=== PATIENT | female | born 1945 | race Hispanic/Latino ===

== ENCOUNTER 2016-04-10 16:25 | Inpatient (IN) | payer MEDICARE ==
[2016-04-10 17:31] LABS: Urine Drugs of Abuse Note Disclamer
[2016-04-10] MEDS ORDERED: NACL 0.9% 1000 ML 2,000 ML ONE (17:54)
[2016-04-10 17:57] LABS: Bacteria,Urine 1+ /HPF (Negative); Bilirubin,Urine NEG (Negative); Blood,Urine SM (Negative); Ketones,Urine NEG (Negative); Leukocyte Esterase,Urine MOD (Negative); Mucus,Urine FEW /HPF; Nitrite,Urine NEG (Negative); Protein,Urine <15 mg/dL mg/dL (Negative); Urobilinogen,Urine < 2.0 mg/dL (<2.0)
--- NOTE | 2016-04-10 18:19 | Emergency Department Report ---
ED General Adult HPI - General Chief complaint: Altered Mental Status Stated complaint: AMS Time Seen by Provider: 04/10/16 17:51 Source: family, EMS (ems notes not available at time of chart dictation), RN notes reviewed, old records reviewed Mode of arrival: Stretcher Limitations: Altered Mental Status, Physical Limitation - History of Present Illness Initial comments: This is a 70-year-old female. She is previously unknown to me. Has a past medical history of dementia, hypertension, depression, COPD. Her primary care doctor is Dr. Jh Sow. Patient has had multiple hospital admissions for generalized weakness, urinary tract infection. Of note, patient recently had 2 urine cultures last year, which grew out the same organism. However, her most recent urine culture from January was negative. Patient is brought to the hospital by her partner and EMS for generalized weakness. History is obtained primarily by speaking to the patient's partner/ , Mrs. Oly Siddiqui. The patient is having complete weakness, not eating anything not drinking anything. She is having some diarrhea. Symptoms have been constant since yesterday, and they have no exacerbating or relieving factors. As per discussion with the patient's /significant other, the patient goals of care and advanced directives are for comfort care only, and they requested DO NOT RESUSCITATE, DO NOT INTUBATE. The patient was too delirious to sign, the patient's /sniffing a #15 R, DO NOT INTUBATE paperwork. The risks, benefits, alternatives of central line will also discuss with the patient's , and she declined this as well. She is interested in comfort care and palliative care only. She is okay with IV fluids, pain medication, antibiotics. During my evaluation, the patient was quite hypotensive, with a blood pressure in the 70s. A large bore 18-gauge IV was placed by myself with no difficulty. 2 L of IV fluids were ordered, urinalysis suggested urinary tract infection, she was placed in isolation precautions for resumed infectious diarrhea, although ischemic colitis is also a possibility. Patient will be admitted for IV fluids, pain control, palliative care consult. -: Gradual Consistency: constant Improves with: none Worsens with: none Associated Symptoms: loss of appetite, malaise, weakness - Related Data Home Medications Medication Instructions Recorded Confirmed Last Taken ALPRAZolam [Xanax TAB] 1 mg PO TID PRN 04/10/16 04/10/16 Unknown Baclofen [Lioresal] 0 mg PO BID 04/10/16 04/10/16 Unknown Colesevelam [Welchol] 625 mg PO BID 04/10/16 04/10/16 Unknown Dicyclomine [Bentyl] 20 mg PO BID 04/10/16 04/10/16 Unknown HYDROcodone/APAP 7.5-325 [[place] 1 each PO TID PRN 04/10/16 04/10/16 Unknown 7.5/325] Omeprazole 40 mg PO DAILY 04/10/16 04/10/16 Unknown Pantoprazole [Protonix TAB] 20 mg QDAY 04/10/16 04/10/16 Unknown QUEtiapine [SEROquel] 100 mg PO QPM 04/10/16 04/10/16 Unknown Rivastigmine [Exelon] 4.6 mg TD DAILY 04/10/16 04/10/16 Unknown Zolpidem Tartrate [Edluar SUBL] 10 mg SL QHS PRN 04/10/16 04/10/16 Unknown Allergies Allergy/AdvReac Type Severity Reaction Status Date / Time No Known Allergies Allergy Verified 12/18/15 15:46 ED Review of Systems ROS: Stated complaint: AMS Other details as noted in HPI Constitutional: malaise, weakness Eyes: as per HPI ENT: as per HPI Respiratory: see HPI. denies: cough Cardiovascular: as per HPI Gastrointestinal: diarrhea Genitourinary: as per HPI Musculoskeletal: as per HPI Skin: as per HPI Neurological: weakness Psychiatric: as per HPI ED Past Medical Hx - Past Medical History Hx Hypertension: Yes Hx Arthritis: Yes Hx Psychiatric Treatment: Yes (depression) Hx COPD: Yes Hx Dementia: Yes Hx HIV: No Additional medical history: Pancreatitis. Chronic pain. colitis. osteoporosis - Surgical History Hx Coronary Stent: No Hx Pacemaker: No Hx Internal Defibrillator: No Additional Surgical History: knee surg hysterectomy pancreatic surgery bowel surgery toe surgery - Social History Smoking Status: Never Smoker - Medications Home Medications: Home Medications Medication Instructions Recorded Confirmed Last Taken Type ALPRAZolam [Xanax TAB] 1 mg PO TID PRN 04/10/16 04/10/16 Unknown History Baclofen [Lioresal] 0 mg PO BID 04/10/16 04/10/16 Unknown History Colesevelam [Welchol] 625 mg PO BID 04/10/16 04/10/16 Unknown History Dicyclomine [Bentyl] 20 mg PO BID 04/10/16 04/10/16 Unknown History HYDROcodone/APAP 7.5-325 [[place] 1 each PO TID PRN 04/10/16 04/10/16 Unknown History 7.5/325] Omeprazole 40 mg PO DAILY 04/10/16 04/10/16 Unknown History Pantoprazole [Protonix TAB] 20 mg QDAY 04/10/16 04/10/16 Unknown History QUEtiapine [SEROquel] 100 mg PO QPM 04/10/16 04/10/16 Unknown History Rivastigmine [Exelon] 4.6 mg TD DAILY 04/10/16 04/10/16 Unknown History Zolpidem Tartrate [Edluar SUBL] 10 mg SL QHS PRN 04/10/16 04/10/16 Unknown History ED Physical Exam - General Limitations: Altered Mental Status, Physical Limitation General appearance: lethargic - Head Head exam: Present: atraumatic, normocephalic - Eye Eye exam: Present: normal appearance - ENT ENT exam: Present: mucous membranes dry - Neck Neck exam: Present: normal inspection - Respiratory Respiratory exam: Present: decreased breath sounds. Absent: respiratory distress - Cardiovascular Cardiovascular Exam: Present: regular rate, normal rhythm, normal heart sounds. Absent: bradycardia, tachycardia, irregular rhythm, systolic murmur, diastolic murmur, rubs, gallop - GI/Abdominal GI/Abdominal exam: Present: soft. Absent: distended, tenderness, guarding, rebound, rigid - Extremities Exam Extremities exam: Present: normal inspection, normal capillary refill. Absent: pedal edema, joint swelling, calf tenderness - Back Exam Back exam: Present: normal inspection, full ROM. Absent: tenderness, CVA tenderness (R), CVA tenderness (L), muscle spasm, paraspinal tenderness, vertebral tenderness - Neurological Exam Neurological exam: Present: altered, other (patient groans in response to command. She does move extremities occasionally and response to command.) - Psychiatric Psychiatric exam: Present: normal affect, normal mood - Skin Skin exam: Present: warm, dry, intact, normal color. Absent: rash ED Course Vital Signs 04/10/16 04/10/16 04/10/16 17:20 18:48 19:11 Temperature 97.6 F Pulse Rate 74 100 H Respiratory 18 22 7 L Rate Blood Pressure 101/60 O2 Sat by Pulse 99 97 99 Oximetry 04/10/16 04/10/16 04/10/16 19:15 19:31 19:45 Temperature Pulse Rate 96 H 116 H 105 H Respiratory 8 L 12 9 L Rate Blood Pressure 67/36 110/63 108/57 O2 Sat by Pulse 100 100 100 Oximetry 04/10/16 04/10/16 04/10/16 20:00 20:15 20:30 Temperature Pulse Rate 110 H 108 H 108 H Respiratory 7 L 8 L 12 Rate Blood Pressure 95/61 86/57 86/57 O2 Sat by Pulse 99 100 98 Oximetry 04/10/16 04/10/16 04/10/16 20:45 21:01 22:01 Temperature Pulse Rate 107 H 124 H 99 H Respiratory 8 L 11 L 9 L Rate Blood Pressure 111/76 105/40 62/34 O2 Sat by Pulse 100 95 98 Oximetry - Reevaluation(s) Reevaluation #1: 04/10/16 19:00 Differential diagnosis: Urinary tract infection, ischemic colitis, urinary tract infection, dehydration, renal insufficiency, pneumonia Assessment and plan: 70-year-old female with failure to thrive, probable urinary tract infection, profuse diarrhea, acute renal insufficiency. Blood pressure currently in the 100s. Getting IV fluids. DO NOT RESUSCITATE, DO NOT INTUBATE paperwork is signed. IV fluids, blood cultures, urine cultures , antibiotics have been ordered. fentanyll for pain has been administered. Case is discussed with the Hospital physician, Dr. Do, who accepts the patient to her service. - EJ/Peripheral Line Neck L Time Out Performed: Yes Indications: multiple IV sites needed Skin Cleansed in Sterile Fashion: Yes Size: 18 Patient Tolerated Procedure: well ED Medical Decision Making - Lab Data Result diagrams: 04/10/16 Unknown 04/12/16 12:12 Vital Signs 04/10/16 17:20 Temperature 97.6 F Pulse Rate 74 Respiratory 18 Rate Blood Pressure 101/60 O2 Sat by Pulse 99 Oximetry Vital Signs 04/10/16 17:20 Temperature 97.6 F Pulse Rate 74 Respiratory 18 Rate Blood Pressure 101/60 O2 Sat by Pulse 99 Oximetry Lab Results 04/10/16 04/10/16 04/10/16 Range/Units 17:08 17:08 Unknown WBC 16.3 H (4.5-11.0) K/mm3 RBC 3.87 (3.65-5.03) M/mm3 Hgb 11.4 (10.1-14.3) gm/dl Hct 35.8 (30.3-42.9) % MCV 93 (79-97) fl MCH 29 (28-32) pg MCHC 32 (30-34) % RDW 15.9 H (13.2-15.2) % Plt Count 240 (140-440) K/mm3 Lymph % (Auto) 9.2 L (13.4-35.0) % [place] % (Auto) 6.9 (0.0-7.3) % Eos % (Auto) 0.9 (0.0-4.3) % Baso % (Auto) 0.2 (0.0-1.8) % Lymph # 1.5 (1.2-5.4) K/mm3 [place] # 1.1 H (0.0-0.8) K/mm3 Eos # 0.1 (0.0-0.4) K/mm3 Baso # 0.0 (0.0-0.1) K/mm3 Seg Neutrophils % 82.8 H (40.0-70.0) % Seg Neutrophils # 13.5 H (1.8-7.7) K/mm3 Sodium (137-145) mmol/L Potassium (3.6-5.0) mmol/L Chloride (98-107) mmol/L Carbon Dioxide (22-30) mmol/L Anion Gap mmol/L BUN (7-17) mg/dL Creatinine (0.7-1.2) mg/dL Estimated GFR ml/min BUN/Creatinine Ratio % Glucose (65-100) mg/dL Calcium (8.4-10.2) mg/dL Magnesium (1.7-2.3) mg/dL Total Bilirubin (0.1-1.2) mg/dL ALT (7-56) units/L Alkaline Phosphatase (35-129) units/L Total Protein (6.3-8.2) g/dL Albumin (3.9-5) g/dL Albumin/Globulin Ratio % TSH (0.270-4.200) mlU/mL Urine Color Yellow (Yellow) Urine Turbidity Slightly-cloudy (Clear) Urine pH 5.0 (5.0-7.0) Ur Specific [place] 1.016 (1.003-1.030) Urine Protein <15 mg/dl (Negative) mg/dL Urine Glucose (UA) Neg (Negative) mg/dL Urine Ketones Neg (Negative) mg/dL Urine Blood Sm (Negative) Urine Nitrite Neg (Negative) Urine Bilirubin Neg (Negative) Urine Urobilinogen < 2.0 (<2.0) mg/dL Ur Leukocyte Esterase Mod (Negative) Urine WBC (Auto) 105.0 H (0.0-6.0) /HPF Urine RBC (Auto) 4.0 (0.0-6.0) /HPF U Epithel Cells (Auto) < 1.0 (0-13.0) /HPF Urine Bacteria (Auto) 1+ (Negative) /HPF Urine WBC Clumps 2+ /HPF Urine Mucus Few /HPF Urine Opiates Screen Presumptive positive Urine Methadone Screen Presumptive negative Ur Barbiturates Screen Presumptive negative Ur Phencyclidine Scrn Presumptive negative Ur Amphetamines Screen Presumptive negative U Benzodiazepines Scrn Presumptive positive Urine Cocaine Screen Presumptive negative U Marijuana (THC) Screen Presumptive negative Drugs of Abuse Note Disclamer 04/10/16 04/10/16 Range/Units Unknown Unknown WBC (4.5-11.0) K/mm3 RBC (3.65-5.03) M/mm3 Hgb (10.1-14.3) gm/dl Hct (30.3-42.9) % MCV (79-97) fl MCH (28-32) pg MCHC (30-34) % RDW (13.2-15.2) % Plt Count (140-440) K/mm3 Lymph % (Auto) (13.4-35.0) % [place] % (Auto) (0.0-7.3) % Eos % (Auto) (0.0-4.3) % Baso % (Auto) (0.0-1.8) % Lymph # (1.2-5.4) K/mm3 [place] # (0.0-0.8) K/mm3 Eos # (0.0-0.4) K/mm3 Baso # (0.0-0.1) K/mm3 Seg Neutrophils % (40.0-70.0) % Seg Neutrophils # (1.8-7.7) K/mm3 Sodium 135 L (137-145) mmol/L Potassium 4.1 (3.6-5.0) mmol/L Chloride 98.4 (98-107) mmol/L Carbon Dioxide 20 L (22-30) mmol/L Anion Gap 21 mmol/L BUN 36 H (7-17) mg/dL Creatinine 3.3 H (0.7-1.2) mg/dL Estimated GFR 14 ml/min BUN/Creatinine Ratio 10.90 % Glucose 104 H (65-100) mg/dL Calcium 8.4 (8.4-10.2) mg/dL Magnesium 1.6 L (1.7-2.3) mg/dL Total Bilirubin 0.3 (0.1-1.2) mg/dL ALT 9 (7-56) units/L Alkaline Phosphatase 87 (35-129) units/L Total Protein 7.4 (6.3-8.2) g/dL Albumin 3.8 L (3.9-5) g/dL Albumin/Globulin Ratio 1.1 % TSH 0.941 (0.270-4.200) mlU/mL Urine Color (Yellow) Urine Turbidity (Clear) Urine pH (5.0-7.0) Ur Specific [place] (1.003-1.030) Urine Protein (Negative) mg/dL Urine Glucose (UA) (Negative) mg/dL Urine Ketones (Negative) mg/dL Urine Blood (Negative) Urine Nitrite (Negative) Urine Bilirubin (Negative) Urine Urobilinogen (<2.0) mg/dL Ur Leukocyte Esterase (Negative) Urine WBC (Auto) (0.0-6.0) /HPF Urine RBC (Auto) (0.0-6.0) /HPF U Epithel Cells (Auto) (0-13.0) /HPF Urine Bacteria (Auto) (Negative) /HPF Urine WBC Clumps /HPF Urine Mucus /HPF Urine Opiates Screen Urine Methadone Screen Ur Barbiturates Screen Ur Phencyclidine Scrn Ur Amphetamines Screen U Benzodiazepines Scrn Urine Cocaine Screen U Marijuana (THC) Screen Drugs of Abuse Note - EKG Data -: EKG Interpreted by Fl EKG shows normal: sinus rhythm, axis, intervals - EKG Data 04/10/16 19:01 Normal sinus, 65 bpm, normal intervals, normal axis, nonspecific T-wave abnormality, not morphologically consistent with STEMI. - Radiology Data Radiology results: image reviewed interpreted by me: Chronic right middle lobe atelectasis/collapse. Possible right lower lobe pneumonia. Critical care attestation.: If time is entered above; I have spent that time in minutes in the direct care of this critically ill patient, excluding procedure time. ED Disposition Clinical Impression: Altered mental status, Acute renal failure, Weakness, Dehydration, Debility, Acute UTI (urinary tract infection), Failure to thrive, Decreased appetite Disposition: OP ADMITTED IP TO THIS HOSP Is pt being admited?: Yes Does the pt Need Aspirin: No Condition: Fair
[2016-04-10] MEDS: NACL 0.9% 500 ML IV SCH (18:25)
[2016-04-10 18:28] LABS: Basophils % (Auto) 0.2 % (0.0-1.8); Eosinophils % (Auto) 0.9 % (0.0-4.3); Hematocrit 35.8 % (30.3-42.9); Hemoglobin 11.4 gm/dl (10.1-14.3); Mean Corpuscular HGB Conc 32 % (30-34); Mean Corpuscular Hemoglobin 29 pg (28-32); Mean Corpuscular Volume 93 fl (79-97); Platelet Count 240 K/mm3 (140-440); Red Blood Count 3.87 M/mm3 (3.65-5.03); Red Cell Distribution Width 15.9 % (13.2-15.2); White Blood Count 16.3 K/mm3 (4.5-11.0)
[2016-04-10] MEDS ORDERED: ZOFRAN ONE (18:28)
[2016-04-10] MEDS ORDERED: ROCEPHIN/NS 1 GM/50 ML 1 GM/50 ML BAG IV ONE (18:30)
[2016-04-10 18:48] LABS: Albumin 3.8 g/dL (3.9-5); Albumin/Globulin Ratio 1.1 %; BUN/Creatinine Ratio 10.9; Bilirubin,Total 0.3 mg/dL (0.1-1.2); Calcium 8.4 mg/dL (8.4-10.2); Chloride 98.4 mmol/L (98-107); Magnesium 1.6 mg/dL (1.7-2.3); Potassium 4.1 mmol/L (3.6-5.0); Total Protein 7.4 g/dL (6.3-8.2)
[2016-04-10] MEDS ORDERED: SUBLIMAZE IV ONE (19:00)
[2016-04-10] MEDS ORDERED: ZOFRAN IV ONE (19:12)
[2016-04-10] MEDS ORDERED: NACL 0.9% 1000 ML 2,000 ML IV ONE (19:23)
--- NOTE | 2016-04-10 19:29 | History and Physical Report ---
History of Present Illness Date of examination: 04/10/16 Date of admission: 04/10/16 Chief complaint: Altered level of consciousness/unresponsiveness/failure to thrive History of present illness: 70 year old female patient ,well known to our service with severe dementia, recurrent UTI,recurrent falls at home, metabolic encephalopathy was less responsive for the last 2 weeks ,worse since yesterday. Has not been able to take oral diet. Family requested DNR and comfort care, also requested home hospice. Patient is hypotensive with mild improvement with iv fluids. Past History Past Medical History: other ( Alzheimer's dementia , failure to thrive in an adult, recurrent falls) Past Surgical History: Other (bowel surgery, knee surgery, pancreatic surgery, toe surgery) Social history: lives with family, AND/DNR-allow natural . denies: smoking , alcohol abuse Family history: hypertension Medications and Allergies Allergies Allergy/AdvReac Type Severity Reaction Status Date / Time No Known Allergies Allergy Verified 12/18/15 15:46 Home Medications Medication Instructions Recorded Confirmed Last Taken Type ALPRAZolam [Xanax TAB] 1 mg PO TID PRN 04/10/16 04/10/16 Unknown History Baclofen [Lioresal] 0 mg PO BID 04/10/16 04/10/16 Unknown History Colesevelam [Welchol] 625 mg PO BID 04/10/16 04/10/16 Unknown History Dicyclomine [Bentyl] 20 mg PO BID 04/10/16 04/10/16 Unknown History HYDROcodone/APAP 7.5-325 [[place] 1 each PO TID PRN 04/10/16 04/10/16 Unknown History 7.5/325] Omeprazole 40 mg PO DAILY 04/10/16 04/10/16 Unknown History Pantoprazole [Protonix TAB] 20 mg QDAY 04/10/16 04/10/16 Unknown History QUEtiapine [SEROquel] 100 mg PO QPM 04/10/16 04/10/16 Unknown History Rivastigmine [Exelon] 4.6 mg TD DAILY 04/10/16 04/10/16 Unknown History Zolpidem Tartrate [Edluar SUBL] 10 mg SL QHS PRN 04/10/16 04/10/16 Unknown History Active Meds: Active Medications Metronidazole (Flagyl 500 Mg/100 Ml) 500 mg in 100 mls @ 100 mls/hr IV NOW SANTINO Sodium Chloride (Nacl 0.9% 500 Ml) 2,000 ml IV NOW SANTINO Last Admin: 04/10/16 18:25 Dose: 2,000 ml Review of Systems ROS unobtainable: due to mental status Exam - Constitutional Vitals: Temp Pulse Resp BP Pulse Ox 97.6 F 74 22 101/60 97 04/10/16 17:20 04/10/16 17:20 04/10/16 18:48 04/10/16 17:20 04/10/16 18:48 General appearance: Present: other (noncommunicative, minimally responsive to deep stimuli) - EENT Eyes: Present: PERRL - Neck Neck: Present: supple - Respiratory Respiratory effort: normal Respiratory: bilateral: diminished, negative: rales, rhonchi, wheezing - Cardiovascular Rhythm: regular Heart Sounds: Present: S1 & S2 - Extremities Extremities: no ischemia, pulses intact, pulses symmetrical - Abdominal General gastrointestinal: Present: soft, non-tender, non-distended, normal bowel sounds - Integumentary Integumentary: Present: clear, warm - Musculoskeletal Musculoskeletal: other (unresponsive) - Psychiatric Psychiatric: other (unresponsive) - Neurologic Neurologic: other (unresponsive) Results - Labs CBC & Chem 7: 04/10/16 Unknown 04/10/16 Unknown Labs: Abnormal lab results 04/10/16 04/10/16 04/10/16 Range/Units 17:08 Unknown Unknown WBC 16.3 H (4.5-11.0) K/mm3 RDW 15.9 H (13.2-15.2) % Lymph % (Auto) 9.2 L (13.4-35.0) % [place] # 1.1 H (0.0-0.8) K/mm3 Seg Neutrophils % 82.8 H (40.0-70.0) % Seg Neutrophils # 13.5 H (1.8-7.7) K/mm3 Sodium 135 L (137-145) mmol/L Carbon Dioxide 20 L (22-30) mmol/L BUN 36 H (7-17) mg/dL Creatinine 3.3 H (0.7-1.2) mg/dL Glucose 104 H (65-100) mg/dL Magnesium 1.6 L (1.7-2.3) mg/dL Albumin 3.8 L (3.9-5) g/dL Urine WBC (Auto) 105.0 H (0.0-6.0) /HPF Assessment and Plan --Metabolic encephalopathy Unresponsive, multifactorial Continue supportive care --Sepsis secondary to recurrent UTI Empiric antibiotics IV Rocephin IV fluids and supportive care --Hypotension, probably hypovolemic versus septic shock Rigorous IV hydration, family do not want any pressors --Acute renal failure Pre renal azotemia,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 --DC planning home with hospice and set up Patient's condition treatment plan discussed in detail with the patient's family members Answered all their questions I also discussed the plan of care with ER physician
[2016-04-10] MEDS ORDERED: FLAGYL 500 MG/100 ML 500 MG/100 ML BAG IV ONE (20:25)
[2016-04-10] MEDS: NACL 0.9% 1000 ML 1,000 ML IV SCH (20:40)
[2016-04-10] MEDS: FLAGYL 500 MG/100 ML 500 MG/100 ML BAG IV SCH ×2 (20:40→20:42)
[2016-04-11] MEDS: NACL 0.9% 1000 ML 1,000 ML IV SCH (06:50)
[2016-04-11] MEDS: ATIVAN IV PRN (09:49)
[2016-04-11] MEDS: PROTONIX IV SCH (09:51)
--- NOTE | 2016-04-11 10:16 | XRay Report ---
AP CHEST: HISTORY: Weakness, pneumonia Mild pulmonary venous congestion has developed since 12/27/15. No consolidation, pleural effusion or pneumothorax. Heart size is stable and within normal limits. The bony thorax is intact. IMPRESSION: Mild pulmonary venous congestion.
--- NOTE | 2016-04-11 13:20 | Progress Note ---
Assessment and Plan Assessment and plan: 1. Sepsis with UTI. Patient will be continued on antibiotics. Follow-up blood , urine cultures and lactic acid levels. Continue IV fluid hydration. 2. Toxic metabolic encephalopathy. Patient more responsive today but agitated and confused. Continue treating underlying causes. 3. UTI. As above. 4. Failure to thrive in an adult. Family does not want any aggressive management. Comfort care only. Consider hospice evaluation. 5. Alzheimer's dementia. Continue supportive care. 6. Hypotension. Etiology likely secondary to hypovolemia versus sepsis. Resolving. History Interval history: Patient confused requiring posy restraint. Hospitalist Physical - Constitutional Vitals: Temp Pulse Resp BP Pulse Ox 97.4 F L 100 H 10 L 62/41 98 04/11/16 00:20 04/11/16 00:20 04/11/16 00:20 04/11/16 00:20 04/10/16 22:01 General appearance: Present: other (noncommunicative, minimally responsive to deep stimuli) - EENT Eyes: Present: PERRL, EOM intact ENT: hearing intact, clear oral mucosa, dentition normal - Neck Neck: Present: supple, normal ROM - Respiratory Respiratory effort: normal Respiratory: bilateral: CTA - Cardiovascular Rhythm: regular Heart Sounds: Present: S1 & S2. Absent: gallop, rub - Extremities Extremities: no ischemia, No edema, Full ROM - Abdominal General gastrointestinal: soft, non-tender, non-distended, normal bowel sounds - Integumentary Integumentary: Present: clear, warm, dry - Neurologic Neurologic: CNII-XII intact, moves all extremities Results - Labs CBC & Chem 7: 04/10/16 Unknown 04/10/16 Unknown Labs: Laboratory Last Values WBC 16.3 K/mm3 (4.5-11.0) H 04/10/16 Unknown RBC 3.87 M/mm3 (3.65-5.03) 04/10/16 Unknown Hgb 11.4 gm/dl (10.1-14.3) 04/10/16 Unknown Hct 35.8 % (30.3-42.9) 04/10/16 Unknown MCV 93 fl (79-97) 04/10/16 Unknown MCH 29 pg (28-32) 04/10/16 Unknown MCHC 32 % (30-34) 04/10/16 Unknown RDW 15.9 % (13.2-15.2) H 04/10/16 Unknown Plt Count 240 K/mm3 (140-440) 04/10/16 Unknown Lymph % (Auto) 9.2 % (13.4-35.0) L 04/10/16 Unknown [place] % (Auto) 6.9 % (0.0-7.3) 04/10/16 Unknown Eos % (Auto) 0.9 % (0.0-4.3) 04/10/16 Unknown Baso % (Auto) 0.2 % (0.0-1.8) 04/10/16 Unknown Lymph # 1.5 K/mm3 (1.2-5.4) 04/10/16 Unknown [place] # 1.1 K/mm3 (0.0-0.8) H 04/10/16 Unknown Eos # 0.1 K/mm3 (0.0-0.4) 04/10/16 Unknown Baso # 0.0 K/mm3 (0.0-0.1) 04/10/16 Unknown Seg Neutrophils % 82.8 % (40.0-70.0) H 04/10/16 Unknown Seg Neutrophils # 13.5 K/mm3 (1.8-7.7) H 04/10/16 Unknown Sodium 135 mmol/L (137-145) L 04/10/16 Unknown Potassium 4.1 mmol/L (3.6-5.0) 04/10/16 Unknown Chloride 98.4 mmol/L (98-107) 04/10/16 Unknown Carbon Dioxide 20 mmol/L (22-30) L 04/10/16 Unknown Anion Gap 21 mmol/L 04/10/16 Unknown BUN 36 mg/dL (7-17) H 04/10/16 Unknown Creatinine 3.3 mg/dL (0.7-1.2) H 04/10/16 Unknown Estimated GFR 14 ml/min 04/10/16 Unknown BUN/Creatinine Ratio 10.90 % 04/10/16 Unknown Glucose 104 mg/dL (65-100) H 04/10/16 Unknown Lactic Acid 1.7 mmol/L (0.7-2.0) 04/10/16 23:27 Calcium 8.4 mg/dL (8.4-10.2) 04/10/16 Unknown Magnesium 1.6 mg/dL (1.7-2.3) L 04/10/16 Unknown Total Bilirubin 0.3 mg/dL (0.1-1.2) 04/10/16 Unknown AST 17 units/L (5-40) 04/10/16 Unknown ALT 9 units/L (7-56) 04/10/16 Unknown Alkaline Phosphatase 87 units/L (35-129) 04/10/16 Unknown Total Protein 7.4 g/dL (6.3-8.2) 04/10/16 Unknown Albumin 3.8 g/dL (3.9-5) L 04/10/16 Unknown Albumin/Globulin Ratio 1.1 % 04/10/16 Unknown TSH 0.941 mlU/mL (0.270-4.200) 04/10/16 Unknown Urine Color Yellow (Yellow) 04/10/16 17:08 Urine Turbidity Slightly-cloudy (Clear) 04/10/16 17:08 Urine pH 5.0 (5.0-7.0) 04/10/16 17:08 Ur Specific [place] 1.016 (1.003-1.030) 04/10/16 17:08 Urine Protein <15 mg/dl mg/dL (Negative) 04/10/16 17:08 Urine Glucose (UA) Neg mg/dL (Negative) 04/10/16 17:08 Urine Ketones Neg mg/dL (Negative) 04/10/16 17:08 Urine Blood Sm (Negative) 04/10/16 17:08 Urine Nitrite Neg (Negative) 04/10/16 17:08 Urine Bilirubin Neg (Negative) 04/10/16 17:08 Urine Urobilinogen < 2.0 mg/dL (<2.0) 04/10/16 17:08 Ur Leukocyte Esterase Mod (Negative) 04/10/16 17:08 Urine WBC (Auto) 105.0 /HPF (0.0-6.0) H 04/10/16 17:08 Urine RBC (Auto) 4.0 /HPF (0.0-6.0) 04/10/16 17:08 U Epithel Cells (Auto) < 1.0 /HPF (0-13.0) 04/10/16 17:08 Urine Bacteria (Auto) 1+ /HPF (Negative) 04/10/16 17:08 Urine WBC Clumps 2+ /HPF 04/10/16 17:08 Urine Mucus Few /HPF 04/10/16 17:08 Urine Opiates Screen Presumptive positive 04/10/16 17:08 Urine Methadone Screen Presumptive negative 04/10/16 17:08 Ur Barbiturates Screen Presumptive negative 04/10/16 17:08 Ur Phencyclidine Scrn Presumptive negative 04/10/16 17:08 Ur Amphetamines Screen Presumptive negative 04/10/16 17:08 U Benzodiazepines Scrn Presumptive positive 04/10/16 17:08 Urine Cocaine Screen Presumptive negative 04/10/16 17:08 U Marijuana (THC) Screen Presumptive negative 04/10/16 17:08 Drugs of Abuse Note Disclamer 04/10/16 17:08
[2016-04-11] MEDS: ROCEPHIN/NS 2 GM/100 ML 2 GM/100 ML BAG IV SCH (16:14)
[2016-04-11] MEDS: NACL 0.9% 500 ML IV SCH (23:43)
[2016-04-12] MEDS: NACL 0.9% 1000 ML 1,000 ML IV SCH (05:43)
--- NOTE | 2016-04-12 08:28 | Progress Note ---
Assessment and Plan Assessment and plan: 1. Sepsis with UTI. Patient will be continued on antibiotics. Follow-up blood , urine cultures and lactic acid levels. Continue IV fluid hydration. 2. Toxic metabolic encephalopathy. Patient more responsive today but agitated and confused. Continue treating underlying causes. 3. UTI. As above. 4. Failure to thrive in an adult. Family does not want any aggressive management. Comfort care only. Consider hospice evaluation. 5. Alzheimer's dementia. Continue supportive care. 6. Hypotension. Etiology likely secondary to hypovolemia versus sepsis. Resolved 7. Insomnia. Ambien 5 mg daily at bedtime. History Interval history: Patient alert and oriented 3. Patient at baseline. Patient threatened to leave AMA. However, I convinced her to stay. Patient states she would like a sleeping pill at bedtime is the only way that she would stay. Hospitalist Physical - Constitutional Vitals: Temp Pulse Resp BP Pulse Ox 100.2 F H 90 20 131/82 94 04/11/16 23:00 04/11/16 23:00 04/11/16 23:00 04/11/16 23:00 04/11/16 23:00 General appearance: Present: other (awake alert but confused and agitated) - EENT Eyes: Present: PERRL, EOM intact ENT: hearing intact, clear oral mucosa, dentition normal - Neck Neck: Present: supple, normal ROM - Respiratory Respiratory effort: normal Respiratory: bilateral: CTA - Cardiovascular Rhythm: regular Heart Sounds: Present: S1 & S2. Absent: gallop, rub - Extremities Extremities: no ischemia, No edema, Full ROM - Abdominal General gastrointestinal: soft, non-tender, non-distended, normal bowel sounds - Integumentary Integumentary: Present: clear, warm, dry - Neurologic Neurologic: CNII-XII intact, moves all extremities Results - Labs CBC & Chem 7: 04/10/16 Unknown 04/10/16 Unknown Labs: Laboratory Last Values WBC 16.3 K/mm3 (4.5-11.0) H 04/10/16 Unknown RBC 3.87 M/mm3 (3.65-5.03) 04/10/16 Unknown Hgb 11.4 gm/dl (10.1-14.3) 04/10/16 Unknown Hct 35.8 % (30.3-42.9) 04/10/16 Unknown MCV 93 fl (79-97) 04/10/16 Unknown MCH 29 pg (28-32) 04/10/16 Unknown MCHC 32 % (30-34) 04/10/16 Unknown RDW 15.9 % (13.2-15.2) H 04/10/16 Unknown Plt Count 240 K/mm3 (140-440) 04/10/16 Unknown Lymph % (Auto) 9.2 % (13.4-35.0) L 04/10/16 Unknown [place] % (Auto) 6.9 % (0.0-7.3) 04/10/16 Unknown Eos % (Auto) 0.9 % (0.0-4.3) 04/10/16 Unknown Baso % (Auto) 0.2 % (0.0-1.8) 04/10/16 Unknown Lymph # 1.5 K/mm3 (1.2-5.4) 04/10/16 Unknown [place] # 1.1 K/mm3 (0.0-0.8) H 04/10/16 Unknown Eos # 0.1 K/mm3 (0.0-0.4) 04/10/16 Unknown Baso # 0.0 K/mm3 (0.0-0.1) 04/10/16 Unknown Seg Neutrophils % 82.8 % (40.0-70.0) H 04/10/16 Unknown Seg Neutrophils # 13.5 K/mm3 (1.8-7.7) H 04/10/16 Unknown Sodium 135 mmol/L (137-145) L 04/10/16 Unknown Potassium 4.1 mmol/L (3.6-5.0) 04/10/16 Unknown Chloride 98.4 mmol/L (98-107) 04/10/16 Unknown Carbon Dioxide 20 mmol/L (22-30) L 04/10/16 Unknown Anion Gap 21 mmol/L 04/10/16 Unknown BUN 36 mg/dL (7-17) H 04/10/16 Unknown Creatinine 3.3 mg/dL (0.7-1.2) H 04/10/16 Unknown Estimated GFR 14 ml/min 04/10/16 Unknown BUN/Creatinine Ratio 10.90 % 04/10/16 Unknown Glucose 104 mg/dL (65-100) H 04/10/16 Unknown Lactic Acid 1.7 mmol/L (0.7-2.0) 04/10/16 23:27 Calcium 8.4 mg/dL (8.4-10.2) 04/10/16 Unknown Magnesium 1.6 mg/dL (1.7-2.3) L 04/10/16 Unknown Total Bilirubin 0.3 mg/dL (0.1-1.2) 04/10/16 Unknown AST 17 units/L (5-40) 04/10/16 Unknown ALT 9 units/L (7-56) 04/10/16 Unknown Alkaline Phosphatase 87 units/L (35-129) 04/10/16 Unknown Total Protein 7.4 g/dL (6.3-8.2) 04/10/16 Unknown Albumin 3.8 g/dL (3.9-5) L 04/10/16 Unknown Albumin/Globulin Ratio 1.1 % 04/10/16 Unknown TSH 0.941 mlU/mL (0.270-4.200) 04/10/16 Unknown Urine Color Yellow (Yellow) 04/10/16 17:08 Urine Turbidity Slightly-cloudy (Clear) 04/10/16 17:08 Urine pH 5.0 (5.0-7.0) 04/10/16 17:08 Ur Specific [place] 1.016 (1.003-1.030) 04/10/16 17:08 Urine Protein <15 mg/dl mg/dL (Negative) 04/10/16 17:08 Urine Glucose (UA) Neg mg/dL (Negative) 04/10/16 17:08 Urine Ketones Neg mg/dL (Negative) 04/10/16 17:08 Urine Blood Sm (Negative) 04/10/16 17:08 Urine Nitrite Neg (Negative) 04/10/16 17:08 Urine Bilirubin Neg (Negative) 04/10/16 17:08 Urine Urobilinogen < 2.0 mg/dL (<2.0) 04/10/16 17:08 Ur Leukocyte Esterase Mod (Negative) 04/10/16 17:08 Urine WBC (Auto) 105.0 /HPF (0.0-6.0) H 04/10/16 17:08 Urine RBC (Auto) 4.0 /HPF (0.0-6.0) 04/10/16 17:08 U Epithel Cells (Auto) < 1.0 /HPF (0-13.0) 04/10/16 17:08 Urine Bacteria (Auto) 1+ /HPF (Negative) 04/10/16 17:08 Urine WBC Clumps 2+ /HPF 04/10/16 17:08 Urine Mucus Few /HPF 04/10/16 17:08 Urine Opiates Screen Presumptive positive 04/10/16 17:08 Urine Methadone Screen Presumptive negative 04/10/16 17:08 Ur Barbiturates Screen Presumptive negative 04/10/16 17:08 Ur Phencyclidine Scrn Presumptive negative 04/10/16 17:08 Ur Amphetamines Screen Presumptive negative 04/10/16 17:08 U Benzodiazepines Scrn Presumptive positive 04/10/16 17:08 Urine Cocaine Screen Presumptive negative 04/10/16 17:08 U Marijuana (THC) Screen Presumptive negative 04/10/16 17:08 Drugs of Abuse Note Disclamer 04/10/16 17:08
--- NOTE | 2016-04-12 09:45 | Admit Criteria Form ---
Admission Criteria Documentation: SEPSIS and OTHER FEBRILE ILLNESS, W/O FOCAL INFECTION Clinical Indications for Admission to Inpatient Care ( Place 'X' for any and all applicable criteria): Admission is indicated for ANY ONE of the following (1)(2)(3)(4): [X] I. Bacteremia [X]II. Suspected or identified specific infection requiring hospitalization (eg, meningitis, endocarditis) [X]III. Hemodynamic instability [X ]IV. Altered mental status [ ]V. Failure or unavailability of outpatient antimicrobial treatment [ ]. Hypoxemia [ ]VII. Seizures [ ]VIII. High-risk febrile neutropenia [ ]IX. Need for parenteral antibiotic in patient who is likely to abuse vascular access device (eg, injection drug user) [A](7) [ ]X. Temperature greater than 104.9 degrees F (40.5 degrees C) (oral) [X ]XI. Inpatient admission required rather than observation care because of ANY ONE of the following: [X ]1) Specific infection identified that is too severe for outpatient treatment or observation care trial [ ]2) Metabolic disorder (eg, hypoglycemia, hyperglycemia, metabolic acidosis) that is severe or persistent [ ]3) Temperature greater than 103.1 degrees F (39.5 degrees C) ( oral) that is not responsive to observation care treatment [X ]4) IV fluid to replace significant ongoing (eg, for over 24 hours) losses (> 3 L/m2 per day) [ ]5) Supplemental oxygen or respiratory treatments for over 24 hours that is performable only in acute inpatient setting [ ]6) Parenteral nutrition regimen need that must be implemented on inpatient basis [ ]7) Strict or protective (eg, laminar flow) isolation [X ]8) Other condition, treatment or monitoring requiring inpatient admission Extended stay beyond goal length of stay may be needed for(1)(3) [ ]a) Sepsis or septic shock(22) [ ]b) Positive blood cultures [ ]c) Insufficient oral intake [ ]d) High-risk febrile neutropenia(29)(30) [ ]e) Continued fever and clinical instability [ ]f) Clinically active comorbid illness (e.g,heart failure, renal failure , diabetes) The original edulio content created by [employer] has been revised. The portions of the content which have been revised are identified through the use of italic text or in bold, and [facility] has neither reviewed nor approved the modified material. All other unmodified content is copyright [facility]. Please see references footnoted in the original [facility] edition 2016 Admission Criteria Met: Yes
[2016-04-12] MEDS: PROTONIX IV SCH (09:57)
[2016-04-12] MEDS: ROCEPHIN/NS 2 GM/100 ML 2 GM/100 ML BAG IV SCH (09:57)
[2016-04-12 12:58] LABS: Anion Gap 17 mmol/L; BUN/Creatinine Ratio 14.28; Blood Urea Nitrogen 10 mg/dL (7-17); Calcium 7.8 mg/dL (8.4-10.2); Carbon Dioxide 18 mmol/L (22-30); Chloride 111.2 mmol/L (98-107); Glucose 112 mg/dL (65-100); Sodium 142 mmol/L (137-145)
[2016-04-12] MEDS: MORPHINE IV PRN ×2 (15:52→20:25)
[2016-04-12] MEDS: AMBIEN PO PRN (22:26)
[2016-04-13 06:11] LABS: Eosinophils % (Auto) 0.6 % (0.0-4.3); Hematocrit 32.5 % (30.3-42.9); Hemoglobin 10.6 gm/dl (10.1-14.3); Mean Corpuscular HGB Conc 33 % (30-34); Mean Corpuscular Hemoglobin 30 pg (28-32); Mean Corpuscular Volume 92 fl (79-97); Platelet Count 189 K/mm3 (140-440); Red Blood Count 3.53 M/mm3 (3.65-5.03); Red Cell Distribution Width 15.4 % (13.2-15.2); White Blood Count 7.7 K/mm3 (4.5-11.0)
[2016-04-13 06:29] LABS: Anion Gap 19 mmol/L; Blood Urea Nitrogen 8 mg/dL (7-17); Carbon Dioxide 20 mmol/L (22-30); Chloride 105.1 mmol/L (98-107); Glucose 100 mg/dL (65-100); Potassium 3.6 mmol/L (3.6-5.0); Sodium 140 mmol/L (137-145)
[2016-04-13] MEDS: ROCEPHIN/NS 2 GM/100 ML 2 GM/100 ML BAG IV SCH (10:12)
[2016-04-13] MEDS: MORPHINE IV PRN (10:12)
[2016-04-13] MEDS: ATIVAN IV PRN (10:12)
[2016-04-13] MEDS: PROTONIX IV SCH (10:13)
[2016-04-13] MEDS: PROTONIX PO SCH (10:14)
[2016-04-13] MEDS ORDERED: LOPRESSOR PO ONE (12:57)
--- NOTE | 2016-04-13 12:57 | Progress Note ---
Assessment and Plan Assessment and plan: 1. Sepsis present on admission secondary to urinary tract infection-improving. White count is normal normal. Continue IV Rocephin 2. Metabolic encephalopathy secondary to one above-improving and almost at baseline. 3. Hypotension present on admission secondary to sepsis-now resolved with hypertensive range blood pressures. Start low-dose beta zeb and monitor blood pressure 4. Dementia-supportive care. 5. DVT prophylaxis -heparin Disposition-patient's partner requested home hospice however this has to be verified with the patient's daughter as per case management History Interval history: f/u sepsis, UTI Patient is seen at the bedside. She has no complaints. She is a DO NOT RESUSCITATE. Hospitalist Physical - Constitutional Vitals: Temp Pulse Resp BP Pulse Ox 98.3 F 93 H 20 176/81 96 04/13/16 11:06 04/13/16 11:06 04/13/16 11:06 04/13/16 11:06 04/13/16 09:00 General appearance: Present: no acute distress - EENT Eyes: Present: PERRL, EOM intact. Absent: scleral icterus, conjunctival injection ENT: hearing intact, clear oral mucosa, no oropharyngeal erythema, no poor dentition - Neck Neck: Present: supple, normal ROM. Absent: enlarged thyroid, masses or JVD - Respiratory Respiratory effort: normal Respiratory: negative: diminished, rales, rhonchi, wheezing - Cardiovascular Rhythm: regular Heart Sounds: Present: S1 & S2. Absent: gallop - Extremities Extremities: no ischemia, pulses intact, pulses symmetrical, No edema Peripheral Pulses: within normal limits - Abdominal General gastrointestinal: soft, non-tender, non-distended, normal bowel sounds - Integumentary Integumentary: Present: clear, warm - Psychiatric Psychiatric: cooperative - Neurologic Neurologic: CNII-XII intact, moves all extremities Results - Labs CBC & Chem 7: 04/13/16 05:51 04/13/16 05:51 Labs: Laboratory Last Values WBC 7.7 K/mm3 (4.5-11.0) 04/13/16 05:51 RBC 3.53 M/mm3 (3.65-5.03) L 04/13/16 05:51 Hgb 10.6 gm/dl (10.1-14.3) 04/13/16 05:51 Hct 32.5 % (30.3-42.9) 04/13/16 05:51 MCV 92 fl (79-97) 04/13/16 05:51 MCH 30 pg (28-32) 04/13/16 05:51 MCHC 33 % (30-34) 04/13/16 05:51 RDW 15.4 % (13.2-15.2) H 04/13/16 05:51 Plt Count 189 K/mm3 (140-440) 04/13/16 05:51 Lymph % (Auto) 20.2 % (13.4-35.0) 04/13/16 05:51 [place] % (Auto) 5.1 % (0.0-7.3) 04/13/16 05:51 Eos % (Auto) 0.6 % (0.0-4.3) 04/13/16 05:51 Baso % (Auto) 0.0 % (0.0-1.8) 04/13/16 05:51 Lymph # 1.6 K/mm3 (1.2-5.4) 04/13/16 05:51 [place] # 0.4 K/mm3 (0.0-0.8) 04/13/16 05:51 Eos # 0.0 K/mm3 (0.0-0.4) 04/13/16 05:51 Baso # 0.0 K/mm3 (0.0-0.1) 04/13/16 05:51 Seg Neutrophils % 74.1 % (40.0-70.0) H 04/13/16 05:51 Seg Neutrophils # 5.7 K/mm3 (1.8-7.7) 04/13/16 05:51 Sodium 140 mmol/L (137-145) 04/13/16 05:51 Potassium 3.6 mmol/L (3.6-5.0) 04/13/16 05:51 Chloride 105.1 mmol/L (98-107) 04/13/16 05:51 Carbon Dioxide 20 mmol/L (22-30) L 04/13/16 05:51 Anion Gap 19 mmol/L 04/13/16 05:51 BUN 8 mg/dL (7-17) 04/13/16 05:51 Creatinine 0.5 mg/dL (0.7-1.2) L 04/13/16 05:51 Estimated GFR > 60 ml/min 04/13/16 05:51 BUN/Creatinine Ratio 16.00 % 04/13/16 05:51 Glucose 100 mg/dL (65-100) 04/13/16 05:51 Lactic Acid 1.7 mmol/L (0.7-2.0) 04/10/16 23:27 Calcium 8.0 mg/dL (8.4-10.2) L 04/13/16 05:51 Magnesium 1.6 mg/dL (1.7-2.3) L 04/10/16 Unknown Total Bilirubin 0.3 mg/dL (0.1-1.2) 04/10/16 Unknown AST 17 units/L (5-40) 04/10/16 Unknown ALT 9 units/L (7-56) 04/10/16 Unknown Alkaline Phosphatase 87 units/L (35-129) 04/10/16 Unknown Total Protein 7.4 g/dL (6.3-8.2) 04/10/16 Unknown Albumin 3.8 g/dL (3.9-5) L 04/10/16 Unknown Albumin/Globulin Ratio 1.1 % 04/10/16 Unknown TSH 0.941 mlU/mL (0.270-4.200) 04/10/16 Unknown Urine Color Yellow (Yellow) 04/10/16 17:08 Urine Turbidity Slightly-cloudy (Clear) 04/10/16 17:08 Urine pH 5.0 (5.0-7.0) 04/10/16 17:08 Ur Specific [place] 1.016 (1.003-1.030) 04/10/16 17:08 Urine Protein <15 mg/dl mg/dL (Negative) 04/10/16 17:08 Urine Glucose (UA) Neg mg/dL (Negative) 04/10/16 17:08 Urine Ketones Neg mg/dL (Negative) 04/10/16 17:08 Urine Blood Sm (Negative) 04/10/16 17:08 Urine Nitrite Neg (Negative) 04/10/16 17:08 Urine Bilirubin Neg (Negative) 04/10/16 17:08 Urine Urobilinogen < 2.0 mg/dL (<2.0) 04/10/16 17:08 Ur Leukocyte Esterase Mod (Negative) 04/10/16 17:08 Urine WBC (Auto) 105.0 /HPF (0.0-6.0) H 04/10/16 17:08 Urine RBC (Auto) 4.0 /HPF (0.0-6.0) 04/10/16 17:08 U Epithel Cells (Auto) < 1.0 /HPF (0-13.0) 04/10/16 17:08 Urine Bacteria (Auto) 1+ /HPF (Negative) 04/10/16 17:08 Urine WBC Clumps 2+ /HPF 04/10/16 17:08 Urine Mucus Few /HPF 04/10/16 17:08 Urine Opiates Screen Presumptive positive 04/10/16 17:08 Urine Methadone Screen Presumptive negative 04/10/16 17:08 Ur Barbiturates Screen Presumptive negative 04/10/16 17:08 Ur Phencyclidine Scrn Presumptive negative 04/10/16 17:08 Ur Amphetamines Screen Presumptive negative 04/10/16 17:08 U Benzodiazepines Scrn Presumptive positive 04/10/16 17:08 Urine Cocaine Screen Presumptive negative 04/10/16 17:08 U Marijuana (THC) Screen Presumptive negative 04/10/16 17:08 Drugs of Abuse Note Disclamer 04/10/16 17:08 Microbiology 04/10/16 21:56 Peripheral/Venous Blood Culture - Preliminary NO GROWTH AFTER 48 HOURS 04/10/16 21:56 Peripheral/Venous Blood Culture - Preliminary NO GROWTH AFTER 48 HOURS 04/10/16 18:46 Stool - Stool Aspirate C. difficile DNA Amplification - Final
--- NOTE | 2016-04-13 13:02 | Discharge Summary ---
Providers - Providers Date of Admission: 04/10/16 21:55 Date of discharge: 04/13/16 Attending physician: MANNY OLIVA Primary care physician: PRUDENCE BEAN Hospitalization Reason for admission: sepsis, UTI Condition: Fair Pertinent studies: Microbiology 04/10/16 21:56 Peripheral/Venous Blood Culture - Preliminary NO GROWTH AFTER 48 HOURS 04/10/16 21:56 Peripheral/Venous Blood Culture - Preliminary NO GROWTH AFTER 48 HOURS 04/10/16 18:46 Stool - Stool Aspirate C. difficile DNA Amplification - Final Hospital course: Mrs. parker is a 70-year-old female who presented to the emergency room with altered mental status. She was assessed as having sepsis secondary to urinary tract infection with dehydration. She also had hypotension secondary to sepsis. She was started on IV fluids and IV antibiotics. Her mental state improved and she returned to baseline mental state prior to discharge. Her sepsis also resolved. Her family decided on home hospice. Arrangements were made and home oxygen was also arranged. Condition at dischargestable 31 minutes spent preparing discharge Disposition: DC TO HOSPICE (HOME) - Discharge Diagnoses (1) Sepsis Status: Acute Qualifiers: Sepsis type: S (2) Acute UTI (urinary tract infection) Status: Acute (3) Acute renal failure Status: Acute Qualifiers: Acute renal failure type: A (4) Altered mental status Status: Acute Qualifiers: Altered mental status type: A Coma depth: C Coma timing: C (5) Failure to thrive Status: Acute Qualifiers: Failure to thrive age range: F Core Measure Documentation - Palliative Care Palliative Care/ Comfort Measures: Not Applicable - Core Measures Any of the following diagnoses?: none Exam - Constitutional Vitals: Temp Pulse Resp BP Pulse Ox 98.3 F 93 H 20 176/81 96 04/13/16 11:06 04/13/16 11:06 04/13/16 11:06 04/13/16 11:06 04/13/16 09:00 see exam in progress note for 04/03/16 Plan Activity: advance as tolerated, fall precautions Diet: low salt Special Instructions: home oxygen via ([place]) Follow up with: PRIMARY CARE, [Referring] - 3-5 Days Prescriptions: Metoprolol [Lopressor TAB] 12.5 mg PO BID #60 tablet Sulfamethoxazole/Trimethoprim [Bactrim DS TAB] 1 each PO BID 4 Days
[2016-04-13] MEDS: NORVASC PO SCH (18:34)
[2016-04-13] MEDS: LOPRESSOR PO SCH (22:03)
[2016-04-13] MEDS: AMBIEN PO PRN (22:03)
[2016-04-14 06:36] LABS: Anion Gap 19 mmol/L; Carbon Dioxide 23 mmol/L (22-30); Chloride 102.2 mmol/L (98-107); Sodium 141 mmol/L (137-145)
[2016-04-14 06:37] LABS: Blood Urea Nitrogen 5 mg/dL (7-17); Calcium 8.1 mg/dL (8.4-10.2); Glucose 116 mg/dL (65-100)
[2016-04-14 08:48] VITALS: BP 174/83
[2016-04-14] MEDS ORDERED: K-DUR PO ONE (09:31)
[2016-04-14] MEDS: LOPRESSOR PO SCH (10:47)
[2016-04-14] MEDS: NORVASC PO SCH (10:49)
[2016-04-14] MEDS: PROTONIX PO SCH (10:50)
--- NOTE | 2016-04-14 13:20 | Event Note ---
Date: 04/14/16 Patient's discharge was held yesterday due to uncontrolled hypertension. She was seen and evaluated at the bedside blood pressure is better controlled today after initiation of metoprolol and Norvasc. She was seen and examined and just clinically stable for discharge Discharge summary dictated on 04/14/2016 has been reviewed and remains the same 31 minutes spent preparing evaluating patient and reviewing discharge summary
== END 2016-04-14 12:00 | disposition hospice, home (50) | DRG 871 ==
LOC: ED 16:25 → 3A 21:55
PROVIDERS: ADMIT Internal Medicine; ATTEND Hospitalist
DX: A41.9 Sepsis, unspecified organism (principal); G92 Toxic encephalopathy; N39.0 Urinary tract infection, site not specified; N17.9 Acute kidney failure, unspecified; R62.7 Adult failure to thrive; I10 Essential (primary) hypertension; F32.9 Major depressive disorder, single episode, unspecified; J44.9 Chronic obstructive pulmonary disease, unspecified; G30.9 Alzheimer's disease, unspecified; F02.80 Dementia in other diseases classified elsewhere, unspecified severity, without behavioral disturbance, psychotic disturbance, mood disturbance, and anxiety; Z66 Do not resuscitate; Z51.5 Encounter for palliative care; E86.0 Dehydration; I95.9 Hypotension, unspecified; Z90.710 Acquired absence of both cervix and uterus; Z82.49 Family history of ischemic heart disease and other diseases of the circulatory system
CPT/HCPCS: 36415; 71010; 80048; 80053; 80307; 81001; 82140; 83735; 84443; 85025; 87040; 87493; 93005; 93010; 96365; 96375; C9113; J0696; J2060; J2270; J2405; J7030

== ENCOUNTER 2016-05-17 14:33 | Inpatient (IN) | payer MEDICARE ==
[2016-05-17] MEDS ORDERED: NACL 0.9% 1000 ML 1,000 ML IV ONE ×2 (14:53→16:26)
--- NOTE | 2016-05-17 15:29 | Emergency Department Report ---
HPI - General Chief Complaint: Weakness Time Seen by Provider: 05/17/16 15:10 - HPI HPI: Room 19 The patient is a 71-year-old female presenting with a chief complaint of altered mental status. Patient was brought in from home with decreased responsiveness. There is no family accompanying the patient was reportedly the patient has had altered mental status for the past 2 days. Patient is lethargic and mumbles responses to questions. Nursing states that the patient' s baseline reportedly is alert and ambulatory. Family states the past 2-3 days the patient appears to choke whenever she tries to eat or drink so she has had decreased po. Family states the patient appears to have "lost the will to live. " Location: Mental status Duration: 2 days Quality: Altered Severity: Moderate Modifying factors: [see above] Context: [see above] Mode of transportation: [not driving] ED Past Medical Hx - Past Medical History Hx Hypertension: Yes Hx Liver Disease: Yes (hep C) Hx Arthritis: Yes Hx Psychiatric Treatment: Yes (depression) Hx COPD: Yes Hx Dementia: Yes Additional medical history: Pancreatitis. Chronic pain. colitis. osteoporosis - Surgical History Additional Surgical History: knee surg hysterectomy pancreatic surgery bowel surgery toe surgery - Family History Family history: no significant - Social History Smoking Status: Unknown if ever smoked - Medications Home Medications: Home Medications Medication Instructions Recorded Confirmed Last Taken Type ALPRAZolam [Xanax TAB] 1 mg PO TID PRN 04/10/16 04/10/16 Unknown History Baclofen [Lioresal] 0 mg PO BID 04/10/16 04/10/16 Unknown History Colesevelam [Welchol] 625 mg PO BID 04/10/16 04/10/16 Unknown History Dicyclomine [Bentyl] 20 mg PO BID 04/10/16 04/10/16 Unknown History HYDROcodone/APAP 7.5-325 [[place] 1 each PO TID PRN 04/10/16 04/10/16 Unknown History 7.5-325 mg TAB] Omeprazole 40 mg PO DAILY 04/10/16 04/10/16 Unknown History Pantoprazole [Protonix TAB] 20 mg QDAY 04/10/16 04/10/16 Unknown History QUEtiapine [SEROquel] 100 mg PO QPM 04/10/16 04/10/16 Unknown History Rivastigmine [Exelon] 4.6 mg TD DAILY 04/10/16 04/10/16 Unknown History Zolpidem Tartrate [Edluar SUBL] 10 mg SL QHS PRN 04/10/16 04/10/16 Unknown History Metoprolol [Lopressor TAB] 12.5 mg PO BID #60 tablet 04/13/16 Unknown Rx Sulfamethoxazole/Trimethoprim 1 each PO BID 4 Days 04/13/16 Unknown Rx [Bactrim DS TAB] amLODIPine [Norvasc] 10 mg PO DAILY #30 tab 04/14/16 Unknown Rx ED Review of Systems ROS: Stated complaint: AMS Other details as noted in HPI Comment: Unobtainable due to pts medical conditions Constitutional: denies: chills, fever Physical Exam - Physical Exam Vital Signs: Vital Signs 05/17/16 14:47 Temperature 97.3 F L Pulse Rate 73 Respiratory 14 Rate Blood Pressure 84/42 Blood Pressure 84/42 [Left] O2 Sat by Pulse 96 Oximetry Physical Exam: GENERAL: The patient is well-developed well-nourished female sitting on stretcher not appearing to be in acute distress. Patient opens her eyes to tactile stimuli HEENT: Normocephalic. Atraumatic. NECK: Supple. Trachea midline CHEST/LUNGS: Clear to auscultation. There is no respiratory distress noted. HEART/CARDIOVASCULAR: Regular. There is no tachycardia. There is no gallop rub or murmur. ABDOMEN: Abdomen is soft, nontender. Patient has normal bowel sounds. There is no abdominal distention. SKIN: There is no rash. There is no edema. There is no diaphoresis. NEURO: The patient is lethargic but opens her eyes to tactile stimuli. MUSCULOSKELETAL: There is no evidence of acute injury. ED Course Vital Signs 05/17/16 14:47 Temperature 97.3 F L Pulse Rate 73 Respiratory 14 Rate Blood Pressure 84/42 Blood Pressure 84/42 [Left] O2 Sat by Pulse 96 Oximetry ED Medical Decision Making - Lab Data Result diagrams: 05/17/16 15:17 05/17/16 15:17 Laboratory Tests 05/17/16 05/17/16 05/17/16 15:17 15:17 15:17 WBC 8.3 RBC 3.90 Hgb 11.8 Hct 36.2 MCV 93 MCH 30 MCHC 33 RDW 15.5 H Plt Count 185 Lymph % (Auto) 22.4 [place] % (Auto) 7.0 Eos % (Auto) 2.8 Baso % (Auto) 0.1 Lymph # 1.9 [place] # 0.6 Eos # 0.2 Baso # 0.0 Seg Neutrophils % 67.7 Seg Neutrophils # 5.6 PT 14.0 INR 1.09 APTT 28.4 Sodium 138 Potassium 4.5 Chloride 107.2 H Carbon Dioxide 14 L Anion Gap 21 BUN 44 H Creatinine 3.2 H Estimated GFR 14 BUN/Creatinine Ratio 13.75 Glucose 93 Calcium 8.7 Total Bilirubin 0.3 AST 18 ALT 12 Alkaline Phosphatase 85 Ammonia Total Creatine Kinase CK-MB (CK-2) CK-MB (CK-2) Rel Index Troponin T Total Protein 7.3 Albumin 3.8 L Albumin/Globulin Ratio 1.1 TSH Free T4 05/17/16 05/17/16 05/17/16 15:17 15:17 15:31 WBC RBC Hgb Hct MCV MCH MCHC RDW Plt Count Lymph % (Auto) [place] % (Auto) Eos % (Auto) Baso % (Auto) Lymph # [place] # Eos # Baso # Seg Neutrophils % Seg Neutrophils # PT INR APTT Sodium Potassium Chloride Carbon Dioxide Anion Gap BUN Creatinine Estimated GFR BUN/Creatinine Ratio Glucose Calcium Total Bilirubin AST ALT Alkaline Phosphatase Ammonia 57.0 Total Creatine Kinase 86 CK-MB (CK-2) 3.5 CK-MB (CK-2) Rel Index 4.0 Troponin T < 0.010 Total Protein Albumin Albumin/Globulin Ratio TSH 0.707 Free T4 0.97 - EKG Data -: EKG Interpreted by Me EKG shows normal: sinus rhythm Rate: normal - EKG Data When compared to previous EKG there are: previous EKG unavailable Interpretation: other (no ischemic changes seen) - Radiology Data Radiology results: report reviewed (CT head), image reviewed (CT head, chest x- ray,) interpreted by me: Chest x-ray- CT head (read by radiologist)-no acute intracranial abnormalities - Differential Diagnosis ICH, hyperammonemia, sepsis, dehydration Critical care attestation.: If time is entered above; I have spent that time in minutes in the direct care of this critically ill patient, excluding procedure time. ED Disposition Clinical Impression: Dehydration, Acute renal failure, Decreased appetite, Altered mental status Disposition: OP ADMITTED IP TO THIS HOSP Is pt being admited?: Yes Does the pt Need Aspirin: No Condition: Serious Referrals: PRIMARY CARE, [Primary Care Provider] - 3-5 Days Time of Disposition: 18:47 (hospitalist paged)
[2016-05-17 15:50] LABS: Urine Drugs of Abuse Note Disclamer
[2016-05-17 15:56] LABS: Basophils % (Auto) 0.1 % (0.0-1.8); Eosinophils % (Auto) 2.8 % (0.0-4.3); Hematocrit 36.2 % (30.3-42.9); Hemoglobin 11.8 gm/dl (10.1-14.3); Mean Corpuscular HGB Conc 33 % (30-34); Mean Corpuscular Hemoglobin 30 pg (28-32); Mean Corpuscular Volume 93 fl (79-97); Platelet Count 185 K/mm3 (140-440); Red Cell Distribution Width 15.5 % (13.2-15.2); White Blood Count 8.3 K/mm3 (4.5-11.0)
[2016-05-17 16:02] LABS: INR 1.09 (0.87-1.13)
[2016-05-17 16:03] LABS: Albumin 3.8 g/dL (3.9-5); Albumin/Globulin Ratio 1.1 %; BUN/Creatinine Ratio 13.75; Bilirubin,Total 0.3 mg/dL (0.1-1.2); Calcium 8.7 mg/dL (8.4-10.2); Creatine Kinase 86 units/L (30-135); Creatine Kinase MB 3.5 ng/mL (0.0-4.0); Partial Thromboplastin Time 28.4 Sec. (24.2-36.6); Total Protein 7.3 g/dL (6.3-8.2)
[2016-05-17 16:04] LABS: Chloride 107.2 mmol/L (98-107); Potassium 4.5 mmol/L (3.6-5.0)
--- NOTE | 2016-05-17 16:08 | Cat Scan Report ---
CT scan of head without contrast: History: Altered mental status. Findings: Ventricles are normal in size and midline in location. No evidence of acute ischemia, hemorrhage or mass. No extra axial fluid collection. Normal brainstem and cerebellum. Normal sinuses and mastoid air cells. Impression: No acute intracranial abnormality.
[2016-05-17 16:14] LABS: Bilirubin,Urine NEG (Negative); Blood,Urine SM (Negative); Ketones,Urine NEG (Negative); Leukocyte Esterase,Urine LG (Negative); Nitrite,Urine NEG (Negative); RBC,Urine < 1.0 /HPF (0.0-6.0); Urobilinogen,Urine < 2.0 mg/dL (<2.0)
--- NOTE | 2016-05-17 16:25 | XRay Report ---
Single view chest: Compared to 04/10/16. History: Altered mental status. Findings: Normal cardiomediastinal silhouette. Trachea is midline. Linear density extending from right hilum to the periphery suggestive of segmental atelectasis. Normal CP angles. Impression: Segmental atelectasis right lung.
--- NOTE | 2016-05-17 17:10 | Admit Criteria Form ---
Admission Criteria Documentation: MENTAL STATUS CHANGE Clinical Indications for Inpatient Care (Place 'X' for any and all applicable criteria): Ongoing inpatient care may be needed for ANY ONE of the following(1)(2)(3)(5)(6) : [ ]I. Suspected serious etiology (eg, medical disorder, MIDDLEWARE SYSTEMS ARCHITECT event) of mental status change [ ]II. Danger to self or others not manageable at lower level of care [ ]III. Grave disability (eg, inability to perform self care necessary at lower level of care) [ ]IV. Agitation or inappropriate behavior interfering with care for primary condition (eg, attempting to discontinue lines or drains prematurely, unable to cooperate with respiratory care) [ ]V. Delirium [A] [D][E] as described by ANY ONE of the following(26): [ ]a) Delirium due to alcohol or sedative [F] withdrawal [ ]b) Delirium of uncertain etiology that has not responded to appropriate empiric treatment [ ]c) Delirium that prevents performance of a life-sustaining function (eg, feeding or hydrating oneself) [X ]. General contraindications and/or Inappropriate clinical situations for Observational Care in patients with Mental Status Change, when ANY ONE of the following is required: [X ]a) Prediction of prolongation of LOS based on ANY ONE of the following may be considered as a contraindication for observational care 2, 3, 4, 5, 6, 7, 8, 9, 10, 11 [X ]i) Age > 65 yrs. [ ]ii) Patient arriving by ambulance [ ]iii) Patient with high acuity [ ]iv) Patient requiring vital sign monitoring [ ]v) Patient on IV medication [ ]b) Systolic blood pressures 180mmHg 3,12 [ ]c) Patient with altered mental status including delirium and other alteration of consciousness, (3) [ ]d) Patient whose discharge disposition will be to a fci home or rehabilitation home should not be managed in Emergency Department Observation Unit. CMS rule requires 3 days hospital stay before such placement.3,13 [ ]e) Patient with failure to thrive due to broad array of etiologies 3,16,17 [ ]f) Inability to ambulate 3,14 Extended stay beyond goal length of stay for the primary condition may be needed until ALL of the following are present(3)(5): [ ]a) Underlying medical etiology of mental status change is absent, or has been established and adequately treated [ ]b) Danger to self or others is absent or manageable at lower level of care. [ ]c) Behavior crisis management, including physical or chemical restraints, is not required or available at lower level of car [ ]d) Substance or alcohol withdrawal is absent or manageable at lower level of care. [ ]e) Behavioral symptoms (eg, agitation, somnolence, inappropriate behavior) are absent, or are manageable at lower level of care. The original [facility] content created by [facility] has been revised. The portions of the content which have been revised are identified through the use of italic text or in bold, and [facility] has neither reviewed nor approved the modified material. All other unmodified content is copyright [facility]. Please see references footnoted in the original [facility] edition 2016
[2016-05-17] MEDS ORDERED: XYLOCAINE 1% MPF 5 mL INFILTRATI ONE (21:27)
[2016-05-17] MEDS ORDERED: ZOFRAN IV PRN (21:32)
[2016-05-17] MEDS ORDERED: TYLENOL PO PRN (21:36)
[2016-05-17] MEDS ORDERED: RESTORIL PO PRN (21:37)
[2016-05-17] MEDS ORDERED: NORCO 7.5/325 PO PRN (21:44)
[2016-05-17] MEDS ORDERED: XANAX PO PRN (21:44)
[2016-05-17] MEDS ORDERED: XYLOCAINE 1% 20 mL ONE (21:48)
[2016-05-17] MEDS: HEPARIN SUB-Q SCH (21:55)
[2016-05-17] MEDS ORDERED: NACL 0.9% 1000 ML 1,000 ML IV SCH (22:00)
[2016-05-17] MEDS: LOPRESSOR PO SCH (22:07)
[2016-05-17] MEDS ORDERED: NACL 0.9% 1000 ML 1,000 ML ONE (22:07)
[2016-05-17] MEDS: WELCHOL PO SCH (23:00)
[2016-05-17] MEDS: BENTYL PO SCH (23:00)
[2016-05-17] MEDS ORDERED: ROCEPHIN IV SCH (23:00)
[2016-05-18] MEDS: HEPARIN SUB-Q SCH ×3 (05:58→22:51)
[2016-05-18 07:49] LABS: Calcium 9.2 mg/dL (8.4-10.2); Potassium 4.7 mmol/L (3.6-5.0)
[2016-05-18] MEDS ORDERED: NON-FORMULARY (Omeprazole [Omeprazole] 40 MG) PO SCH (10:00)
[2016-05-18] MEDS ORDERED: PROTONIX PO SCH (10:00)
[2016-05-18] MEDS: EXELON TD SCH (10:45)
[2016-05-18] MEDS: BENTYL PO SCH ×2 (10:45→22:55)
[2016-05-18] MEDS: PROTONIX PO SCH (10:45)
[2016-05-18] MEDS: NORVASC PO SCH (10:45)
[2016-05-18] MEDS: LOPRESSOR PO SCH ×2 (10:45→22:55)
[2016-05-18] MEDS: WELCHOL PO SCH ×2 (10:45→22:55)
[2016-05-18] MEDS: LEVAQUIN PO SCH (12:31)
--- NOTE | 2016-05-18 15:44 | Progress Note ---
Assessment and Plan Assessment and plan: AMS Likely from UTI - Patient on IV antibiotics, IV fluids - Patient is getting better and she started to eat and drink History Interval history: Per her patient looks better. she knew her name and her 's name. Hospitalist Physical - Physical exam Narrative exam: Not in cardiopulmonary distress. The patient appeared emaciated. Vital signs as documented. Head exam is unremarkable. No scleral icterus . Neck is without jugular venous distension, thyromegaly, or carotid bruits. Lungs are clear to auscultation. Cardiac exam reveals regular rate and Rhythm. First and second heart sounds normal. No murmurs, rubs or gallops. Abdominal exam reveals normal bowel sounds, no masses, no organomegaly and no aortic enlargement. Extremities are nonedematous and both femoral and pedal pulses are normal. SOCIAL SERVICES DIRECTOR: Alert and oriented 1. No focal weakness. - Constitutional Vitals: Temp Pulse Resp BP Pulse Ox 98.1 F 94 H 20 120/63 97 05/18/16 12:00 05/18/16 12:00 05/18/16 12:00 05/18/16 12:00 05/18/16 12:00 Results - Labs CBC & Chem 7: 05/17/16 15:17 05/18/16 06:59 Labs: Laboratory Last Values WBC 8.3 K/mm3 (4.5-11.0) 05/17/16 15: RBC 3.90 M/mm3 (3.65-5.03) 05/17/16 15:17 Hgb 11.8 gm/dl (10.1-14.3) 05/17/16 15: Hct 36.2 % (30.3-42.9) 05/17/16 15: MCV 93 fl (79-97) 05/17/16 15:17 MCH 30 pg (28-32) 05/17/16 15: MCHC 33 % (30-34) 05/17/16 15:17 RDW 15.5 % (13.2-15.2) H 05/17/16 15:17 Plt Count 185 K/mm3 (140-440) 05/17/16 15:17 Lymph % (Auto) 22.4 % (13.4-35.0) 05/17/16 15:17 Ward % (Auto) 7.0 % (0.0-7.3) 05/17/16 15:17 Eos % (Auto) 2.8 % (0.0-4.3) 05/17/16 15:17 Baso % (Auto) 0.1 % (0.0-1.8) 05/17/16 15:17 Lymph # 1.9 K/mm3 (1.2-5.4) 05/17/16 15: Ward # 0.6 K/mm3 (0.0-0.8) 05/17/16 15:17 Eos # 0.2 K/mm3 (0.0-0.4) 05/17/16 15:17 Baso # 0.0 K/mm3 (0.0-0.1) 05/17/16 15:17 Seg Neutrophils % 67.7 % (40.0-70.0) 05/17/16 15: Seg Neutrophils # 5.6 K/mm3 (1.8-7.7) 05/17/16 15: PT 14.0 Sec. (12.2-14.9) 05/17/16 15:17 INR 1.09 (0.87-1.13) 05/17/16 15:17 APTT 28.4 Sec. (24.2-36.6) 05/17/16 15:17 Sodium 144 mmol/L (137-145) 05/18/16 06:59 Potassium 4.7 mmol/L (3.6-5.0) 05/18/16 06:59 Chloride 113.0 mmol/L (98-107) H 05/18/16 06:59 Carbon Dioxide 17 mmol/L (22-30) L 05/18/16 06:59 Anion Gap 19 mmol/L 05/18/16 06:59 BUN 29 mg/dL (7-17) H 05/18/16 06:59 Creatinine 1.0 mg/dL (0.7-1.2) D 05/18/16 06:59 Estimated GFR 55 ml/min 05/18/16 06:59 BUN/Creatinine Ratio 29.00 % 05/18/16 06:59 Glucose 84 mg/dL (65-100) 05/18/16 06:59 Calcium 9.2 mg/dL (8.4-10.2) 05/18/16 06:59 Total Bilirubin 0.3 mg/dL (0.1-1.2) 05/17/16 15:17 AST 18 units/L (5-40) 05/17/16 15:17 ALT 12 units/L (7-56) 05/17/16 15:17 Alkaline Phosphatase 85 units/L (35-129) 05/17/16 15:17 Ammonia 57.0 umol/L (25-60) 05/17/16 15:31 Total Creatine Kinase 86 units/L (30-135) 05/17/16 15:17 CK-MB (CK-2) 3.5 ng/mL (0.0-4.0) 05/17/16 15:17 CK-MB (CK-2) Rel Index 4.0 (0-4) 05/17/16 15:17 Troponin T < 0.010 ng/mL (0.00-0.029) 05/17/16 15:17 Total Protein 7.3 g/dL (6.3-8.2) 05/17/16 15:17 Albumin 3.8 g/dL (3.9-5) L 05/17/16 15:17 Albumin/Globulin Ratio 1.1 % 05/17/16 15:17 TSH 0.707 mlU/mL (0.270-4.200) 05/17/16 15:17 Free T4 0.97 ng/dL (0.76-1.46) 05/17/16 15:17 Urine Color Yellow (Yellow) 05/17/16 15:42 Urine Turbidity Cloudy (Clear) 05/17/16 15:42 Urine pH 5.0 (5.0-7.0) 05/17/16 15:42 Ur Specific [place] 1.014 (1.003-1.030) 05/17/16 15:42 Urine Protein 30 mg/dl mg/dL (Negative) 05/17/16 15:42 Urine Glucose (UA) Neg mg/dL (Negative) 05/17/16 15:42 Urine Ketones Neg mg/dL (Negative) 05/17/16 15:42 Urine Blood Sm (Negative) 05/17/16 15:42 Urine Nitrite Neg (Negative) 05/17/16 15:42 Urine Bilirubin Neg (Negative) 05/17/16 15:42 Urine Urobilinogen < 2.0 mg/dL (<2.0) 05/17/16 15:42 Ur Leukocyte Esterase Lg (Negative) 05/17/16 15:42 Urine WBC (Auto) 17.0 /HPF (0.0-6.0) H 05/17/16 15:42 Urine RBC (Auto) < 1.0 /HPF (0.0-6.0) 05/17/16 15:42 U Epithel Cells (Auto) < 1.0 /HPF (0-13.0) 05/17/16 15:42 Urine Opiates Screen Presumptive negative 05/17/16 15:42 Urine Methadone Screen Presumptive negative 05/17/16 15:42 Ur Barbiturates Screen Presumptive negative 05/17/16 15:42 Ur Phencyclidine Scrn Presumptive negative 05/17/16 15:42 Ur Amphetamines Screen Presumptive negative 05/17/16 15:42 U Benzodiazepines Scrn Presumptive positive 05/17/16 15:42 Urine Cocaine Screen Presumptive negative 05/17/16 15:42 U Marijuana (THC) Screen Presumptive negative 05/17/16 15:42 Drugs of Abuse Note Disclamer 05/17/16 15:42
--- NOTE | 2016-05-18 16:24 | History and Physical Report ---
CHIEF COMPLAINT: Change in mental status. HISTORY OF PRESENT ILLNESS: The patient was brought in because of decreased responsiveness and at the time of presentation, there was no family member around to give more information, but the patient was noted to have confusion for 2 days and also was lethargic at the time of being seen by the Emergency Room doctor. The patient was noted by the family later on to choke whenever she tries to eat and has not been taking much of food or water by mouth and the family gave the impression that the patient has lost the will to live. There was no history of fever. No history of nausea or vomiting. No history of chills, chest pain, or shortness of breath. PAST MEDICAL HISTORY: Pertinent for hypertension, liver disease, notably hepatitis C, arthritis, depression, COPD, dementia, pancreatitis, chronic pain, colitis, and osteoporosis. PAST SURGICAL HISTORY: Pertinent for knee surgery, hysterectomy, pancreatic surgery, bowel surgery, and toe surgery. FAMILY HISTORY: Noncontributory. SOCIAL HISTORY: The patient lives with family. Does not smoke, does not drink alcohol, and does not use illicit drugs. MEDICATIONS: The patient is on alprazolam, Xanax 1 mg by mouth 3 times daily, , dicyclomine, hydrocodone/APAP , omeprazole, pantoprazole, quetiapine, Exelon, zolpidem, metoprolol, Lopressor, sulfamethoxazole/trimethoprim,, amlodipine. ALLERGIES: No known drug allergies. REVIEW OF SYSTEMS: CONSTITUTIONAL: There is no fever, chills, or diaphoresis. HEENT: There is no headache or sore throat. CARDIOVASCULAR SYSTEM: There is no chest pain, orthopnea. RESPIRATORY SYSTEM: There is no shortness of breath or cough. GASTROINTESTINAL SYSTEM: There is no nausea, no vomiting, no abdominal pain, diarrhea, or constipation. There is decreased oral intake of both fluids and food. NEUROLOGICAL SYSTEM: Altered mental status noted. MUSCULOSKELETAL SYSTEM: There is no joint pain or swelling. DERMATOLOGICAL SYSTEM: There is no skin rash or itching. GENITOURINARY SYSTEM: There is no dysuria, hematuria, or flank pain. Rest of system review is normal. PHYSICAL EXAMINATION: GENERAL: At the time of exam, the patient was found to be lethargic, but arousable and able to communicate and not in any acute distress. VITAL SIGNS: Shows temperature of 97.5, pulse of 77, respirations 10, O2 saturation of 99% on oxygen, blood pressure with a MAP of 71. HEENT: Show pupils to be equal, round and reactive to light and accommodation. Extraocular muscles are intact. NECK: Supple, with no JVD or carotid bruit. CARDIOVASCULAR SYSTEM: Show first and second heart sounds with no gallops or murmur. RESPIRATORY SYSTEM: Show good air entry on both sides of the lung with no abnormal breath sounds. GASTROINTESTINAL SYSTEM: Show abdomen to be full, soft, nontender, with no organomegaly or rigidity. NEUROLOGIC: Showed no focal deficit. MUSCULOSKELETAL SYSTEM: Show no joint pain or swelling. DERMATOLOGICAL SYSTEM: There is no skin rash. GENITOURINARY SYSTEM: Showing no costovertebral angle tenderness. PERTINENT LABORATORY AND IMAGING STUDIES: The patient had chest x-ray done that shows subsegmental atelectasis in the right lung. CT of the head without contrast showed no acute intracranial lesion. Lab results, the patient had CBC done that came back unremarkable. Chemistry shows a slightly high chloride of 107 with low CO2 of 14, BUN of 44 with elevated creatinine of 3.2 and the rest of chemistry was unremarkable. Urinalysis shows mild yellow colored urine with large leukocyte esterase and high urine WBC . DIAGNOSES: 1. Altered mental status. 2. Dehydration. 3. Acute renal failure. 4. Urinary tract infection. PLAN: The patient will be admitted to the medical floor and will be on IV normal saline at a rate of 100 mL an hour. The patient will be on IV Rocephin 1 gram daily and will be on Tylenol 650 mg by mouth every 4 hours as needed for fever and headache and will have basic metabolic panel checked in the morning. DVT prophylaxis will be through sequential compressive device and the patient's home medications will be reconciled and applied by Cardiology. JOB# [id number] [facility]/MORENITA LUCAS
[2016-05-19 05:13] LABS: Basophils % (Auto) 0.1 % (0.0-1.8); Eosinophils % (Auto) 2.1 % (0.0-4.3); Hemoglobin 10.7 gm/dl (10.1-14.3); Mean Corpuscular HGB Conc 33 % (30-34); Mean Corpuscular Hemoglobin 31 pg (28-32); Mean Corpuscular Volume 92 fl (79-97); Platelet Count 157 K/mm3 (140-440); Red Blood Count 3.49 M/mm3 (3.65-5.03); Red Cell Distribution Width 15.2 % (13.2-15.2); White Blood Count 7.1 K/mm3 (4.5-11.0)
[2016-05-19 05:24] LABS: Anion Gap 18 mmol/L; BUN/Creatinine Ratio 26.25; Blood Urea Nitrogen 21 mg/dL (7-17); Carbon Dioxide 21 mmol/L (22-30); Chloride 107.1 mmol/L (98-107); Glucose 105 mg/dL (65-100); Potassium 4.6 mmol/L (3.6-5.0); Sodium 141 mmol/L (137-145)
[2016-05-19] MEDS: HEPARIN SUB-Q SCH (06:37)
--- NOTE | 2016-05-19 08:50 | Discharge Summary ---
Providers - Providers Date of Admission: 05/17/16 21:22 Date of discharge: 05/19/16 Attending physician: KUSUM LAYTON MD 05/18/16 15:34 Physical Therapy Evaluation and Treat [CONS] Routine Comment: Needs strengthening for return home Reason For Exam: Patient independent for ambulation at home w/o AD Mode of Transport?: Wheelchair Weight bearing status?: Full wt bearing Assistive devices?: No Primary care physician: HAND GLASS CUTTER Hospitalization Reason for admission: Altered mental status, UTI Condition: Serious Pertinent studies: CT head no acute intracranial finding. Hospital course: 71-year-old female who was admitted to the floor for altered mental status, UTI, acute renal failure. Patient was admitted and treated for UTI, IV fluid was given to treat the ARF. Patient showed marked improvement and discharged with by mouth antibiotics. Disposition: DC TO HOSPICE (HOME) Time spent for discharge: 31 minutes - Discharge Diagnoses (1) Acute renal failure Status: Acute Qualifiers: Acute renal failure type: A (2) Altered mental status Status: Acute Qualifiers: Altered mental status type: A Coma depth: C Coma timing: C (3) Dehydration Status: Acute (4) Acute UTI (urinary tract infection) Status: Acute Core Measure Documentation - Palliative Care Palliative Care/ Comfort Measures: Not Applicable - Core Measures Any of the following diagnoses?: none Exam - Physical Exam Narrative exam: Not in cardiopulmonary distress. The patient appeared emaciated. Vital signs as documented. Head exam is unremarkable. No scleral icterus . Neck is without jugular venous distension, thyromegaly, or carotid bruits. Lungs are clear to auscultation. Cardiac exam reveals regular rate and Rhythm. First and second heart sounds normal. No murmurs, rubs or gallops. Abdominal exam reveals normal bowel sounds, no masses, no organomegaly and no aortic enlargement. Extremities are nonedematous and both femoral and pedal pulses are normal. IMPLEMENTATION SPECIALIST: Alert and oriented 2. No focal weakness. - Constitutional Vitals: Temp Pulse Resp BP Pulse Ox 98.1 F 72 20 102/58 99 05/19/16 04:00 05/19/16 07:21 05/18/16 20:41 05/19/16 04:00 05/18/16 22:00 Plan Activity: advance as tolerated Weight Bearing Status: Full Weight Bearing Diet: regular Follow up with: MOIRA SCHULTE MD [Primary Care Provider] - 7 Days Prescriptions: Levofloxacin [Levaquin TAB] 500 mg PO QDAY #5 tablet
[2016-05-19] MEDS: BENTYL PO SCH (09:57)
[2016-05-19] MEDS: PROTONIX PO SCH (09:58)
[2016-05-19] MEDS: WELCHOL PO SCH (09:58)
[2016-05-19] MEDS: LEVAQUIN PO SCH (09:58)
[2016-05-19] MEDS: EXELON TD SCH (09:58)
[2016-05-19] MEDS: NORVASC PO SCH (10:00)
[2016-05-19] MEDS: LOPRESSOR PO SCH (10:01)
[2016-05-19 10:13] VITALS: BP 129/57
--- NOTE | 2016-05-19 13:09 | Query-Altered Level of Consc. ---
Shaun Shaw____Kelsey Date:____05/19/16 University Internship/CDS:____Abel Gitaana paula Phone#:____[phone] Exercise your independent professional judgment when responding to this query. Questions asked do not imply a particular answer is desired or expected. We greatly appreciate your clarification on this issue. Clinical Documentation States: 71 year old female was admitted on 05/17/16. The discharge summary states " Altered mental status Status: Acute Qualifiers : Altered mental status type: A Coma depth: C Coma timing: C " The progress note (05/18/16) states " AMS Likely from UTI Patient on IV antibiotics, IV fluids Patient is getting better and she started to eat and drink " Please provide an appropriate diagnosis clarifying the Etiology and Acuity of this clinical scenario: [ ] Metabolic Encephalopathy [ ] Toxic Encephalopathy [ ] Toxic - Metabolic Encephalopathy [ ] Septic Encephalopathy with Sepsis [x ] Septic Encephalopathy without Sepsis [ ] Acute Hepatic Encephalopathy [ ] Subacute Hepatic Encephalopathy [ ] Encephalopathy [ ] Other: [ ] Unable To Determine [ ]Comment/Explanation: Present on Admission: [x ] Yes (Y) [ ] Clinically undeterminable (W) [ ] No (N) Please also document response in your Progress Notes and/or Discharge Summary and indicate if the condition was present on admission. LANCE
--- NOTE | 2016-05-19 13:13 | Query- Renal Failure ---
Shaun Shaw____Kelsey Date:____05/19/16 Pictures Editor/CDS:___Rajivmonse Pelayoana paula Phone#:___[phone] Exercise your independent professional judgment when responding to query. Questions asked do not imply a particular answer is desired or expected. We greatly appreciate your clarification on this issue. Clinical Documentation States: 71 year old female was admitted on 05/17/16. The discharge summary states " Acute renal failure Status: Acute Qualifiers : Acute renal failure type: A " Clinical Findings Show: 05/17/16 05/19/16 Creatinine: 3.2 0.8 Please clarify if you mean: Acute Renal Failure with or due to: [ ] Tubular Necrosis [ ] Medullary Necrosis [ x] Vasomotor Nephropathy [ ] Shock Kidney [ ] Tubular Nephrosis [ ] Renal Tubular Stasis [ ] Cortical Necrosis [ ] Acute Renal Failure (unspecified) [ ] Lower Tubular Nephrosis [ ] Other: [ ] Not Applicable Present on Admission: [ x] Yes (Y) [ ] Clinically undeterminable (W) [ ] No (N) Please also document response in your Progress Notes and/or Discharge Summary and indicate if the condition was present on admission. MTDD
== END 2016-05-19 13:22 | disposition hospice, home (50) | DRG 682 ==
LOC: ED 14:33 → CC2 21:22
PROVIDERS: ADMIT Internal Medicine; ATTEND Internal Medicine
DX: N17.0 Acute kidney failure with tubular necrosis (principal); G93.41 Metabolic encephalopathy; N39.0 Urinary tract infection, site not specified; E86.0 Dehydration; I10 Essential (primary) hypertension; M19.90 Unspecified osteoarthritis, unspecified site; F32.9 Major depressive disorder, single episode, unspecified; J44.9 Chronic obstructive pulmonary disease, unspecified; G89.29 Other chronic pain; M81.0 Age-related osteoporosis without current pathological fracture; Z90.710 Acquired absence of both cervix and uterus; Z86.19 Personal history of other infectious and parasitic diseases
CPT/HCPCS: 36415; 70450; 71010; 80048; 80053; 80307; 81001; 82140; 82550; 82553; 82962; 84439; 84443; 84484; 85025; 85610; 85730; 87040; 93005; 93010; 94760; 96361; J0696; J1644; J7030